=== PATIENT | female | born 1960 | race Caucasian/White ===

== ENCOUNTER 2017-10-04 00:59 | Inpatient (IN) | payer OTHER ==
[~2017-10-04] VITALS: Ht 157.5 cm; Wt 87.1 kg
[~2017-10-04 00:59] MED LIST: FUROSEMIDE20 M1 PO; METHADONE HCL10 M1 PO; NEXIUM40 M1 PO; OXYCODONE HCL10 M2 PO; OXYCONTIN80 M1 PO; WELLBUTRIN SR150 M1 PO; XANAX0.5 M1 PO
--- NOTE | 2017-10-04 10:50 | Admission Core Measures ---
Acute Coronary Syndrome (CM) ACS Core Measures Acute Coronary Syndrome Diagnosis No Congestive Heart Failure (NEW) CHF Core Measures Congestive Heart Failure Diagnosis No Cerebrovascular Accident (NEW) CVA Core Measures CVA/TIA Diagnosis No Venous Thromboembolism VTE Core Arik (View Protocol) VTE Risk Factors Surgery No Mechanical VTE Prophylaxis d/t N/A MechProphylax Ordered No VTE Pharm Prophylaxis d/t NA PharmProphylax ordered Problem List As ranked by this Provider includes Assessment & Plan 1. Mechanical loosening of internal right hip prosthetic joint HOME MEDS Home Med List Alprazolam (Xanax) 0.5 MG TABLET 1 TAB PO DAILY NEEDED ANXIETY (Reported) Bupropion HCl (Wellbutrin Sr) 150 MG TABLET.ER 1 TAB PO BID PAIN (Reported) Esomeprazole (Nexium) 40 MG CAPSULE.DR 1 CAP PO DAILY GERD (Reported) Furosemide 20 MG TABLET 1 TAB PO DAILY UNKNOWN (Reported) Methadone Hydrochloride (Methadone HCl) 10 MG TABLET 1 TAB PO TID PAIN ( Reported) Oxycodone HCl 10 MG TABLET 1 TAB PO Q4H PRN PAIN (Reported) Oxycodone HCl (Oxycontin) 80 MG TAB.ER.12H 1 TAB PO TID PAIN (Reported)
--- NOTE | 2017-10-04 10:54 | Surgical Discharge Summary ---
Visit Information Visit Dates Admission Date: 10/04/17 Discharge Date: 10/05/17 History of Present Illness Chief Complaint: RIGHT HIP PAIN Surgical History Pertinent Surgical History: hip replacement Review of Systems: PER [facility] Hospital Course Course Attending Physician: Ramo Dowd MD Primary Care Physician: Lawrence Spicer MD Hospital Course: Pt presented to [facility] on 10/04/17 for an elective right total hip revision. Pt tolerated the procedure well. Post-operatively she voided spontaneously, tolerated PO intake, pain was managed with oral medication, she ambulated with physical therapy and was cleared for discharge to home with home health services. Discharge instructions were reviewed with the patient. She was given instructions to follow-up with Dr. 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
--- NOTE | 2017-10-04 10:56 | Patient Discharge Instructions ---
Discharge Instructions General Discharge Information You were seen/treated for: right hip pain due to mechanical loosening of right hip implant You had these procedures: Revision of right tatal hip replacement Watch for these problems: fever of 101 drainage from incision redness around incision unable to bear weight No bath, but you may shower: Yes Other wound care: daily dry dressing change Special Instructions: no driving while taking narcotics Diet Continue normal diet: Yes Activity Activity Self Limited: Yes Activity Limited to: Weight bear as tolerated (with rolling walker) Acute Coronary Syndrome Inclusion Criteria At DC or during hospital stay patient has or had the following: ACS DIAGNOSIS No Discharge Core Measures Meds if any: Prescribed or Continued at Discharge Meds if any: NOT Prescribed or Continued at Discharge Congestive Heart Failure Inclusion Criteria At DC or during hospital stay patient has or had the following: CHF DIAGNOSIS No Discharge Core Measures Meds if any: Prescribed or Continued at Discharge Meds if any: NOT Prescribed or Continued at Discharge Cerebrovascular accident Inclusion Criteria At DC or during hospital stay patient has or had the following: CVA/TIA Diagnosis No Discharge Core Measures Meds if any: Prescribed or Continued at Discharge Meds if any: NOT Prescribed or Continued at Discharge Venous thromboembolism Inclusion Criteria VTE Diagnosis No VTE Type NONE VTE Confirmed by (Test) NONE Discharge Core Measures - Per Current guidelines, there needs to be overlap - treatment for the first 5 days of Warfarin therapy. - If discharged on Warfarin prior to 5 days of - overlap therapy, the patient will need to be - assessed for post discharge needs including - *Post discharge parental anticoagulation - *Warfarin and/or parental anticoagulation education - *Follow up date to check INR post discharge At least 5 days overlap therapy as Inpatient No Meds if any: Prescribed or Continued at Discharge Note: Overlap Therapy is Warfarin and Anticoagulant Meds if any: NOT Prescribed or Continued at Discharge
[2017-10-04] MEDS ORDERED: COLACE100 M1 PO (10:58)
[2017-10-04] MEDS ORDERED: MIRALAX17 G1 PO (10:58)
[2017-10-04] MEDS ORDERED: DILAUDID2 M1 PO (10:58)
[2017-10-04] MEDS ORDERED: ASPIRIN EC325 M2 PO (10:58)
--- NOTE | 2017-10-04 14:43 | Operative Report ---
Operative/Inv Procedure Report Surgery Date: 10/04/17 Name of Procedure: Failed right total hip replacement Pre-Operative Diagnosis: Right total hip revision Post-Operative Diagnosis: Same Estimated Blood Loss: 350 Surgeon/Lunchroom Worker: Nile ROBLEDO,Ramo Li Anesthesia: block Operative/Procedure Note Note: Description of Procedure: The patient was taken to the operating room and positively identified. After induction of spinal anesthesia and administration of appropriate pre-operative antibiotics, the patient was positioned supine on the operating room table and all bony prominences were well padded. After performing a surgical timeout, the right lower extremity was prepped and draped in the usual sterile fashion. A direct anterior approach was made to the right hip. The incision was carried sharply through superficial soft tissues to the level of the fascia. Meticulous hemostasis was maintained with Bovie electocautery. The fascia over the tensor fascia rigo muscle was opened sharply and the interval between the TFL and the sartorius was entered bluntly taking care to stay lateral to the lateral femoral cutaneous nerve. Retractors were placed around the femoral neck and the pericapsular fat was identified. The ascending branches of the lateral femoral circumflex vessels were identified and carefully coagulated. The anterior pseudocapsule was resected, exposing the neck of the previously placed prosthesis. A sample of the synovium were sent for microbiologic analysis. Exposure continued until the head could be dislocated from the socket. The femoral head was disimpacted from the trunnion. The modular neck was also disimpacted from the distal part of the stem. Retractors were placed around the acetabulum. It was noted that the acetabulum was quite vertical and that the anterior and superolateral portions of the acetabular rim were overhanging the actual metallic portion of the component due to its vertical position. The locking mechanism for the polyethylene could not be accessed due to the position of the cup. Utilizing an osteotome, the polyethylene liner was split into multiple pieces until it could easily be removed. Dome screw was removed with the appropriate screwdriver. Utilizing the Delaney cup removal system, the acetabular component was freed from its bony bed. He was done with a minimum of bony damage. The acetabular bed was found to be in good condition, free of any cavitary defects or fractures. Acetabular bed was then irrigated with a liter of sterile saline. It was then reamed to accept a 60 mm Biomet G7 OsseoTi multi-hole acetabular implant. This was impacted into place in the appropriate position and several screws were used for supplemental fixation. It was then fit with a 40 mm G7 neutral acetabular liner. The hip was then trialed with a Delaney Kinectiv size J modular neck in the lateral offset position and a 40mm +0 head. This yielded excellent range of motion stability and jainism of preoperative leg lengths. She was quite long on the operative side preoperatively. The trial components removed and the final components were impacted into place. The hip was reduced and put through a full range of motion found to be quite stable. The intra-articular space was copiously irrigated with sterile saline. The pericapsular soft tissues were infiltrated with Marcaine. The fascial layers were closed with #1 Vicryl sutures. The skin was reapproximated with interrupted 2-0 Vicryl and closed with gregor. A sterile dressing was applied, the patient was awakened and taken to recovery room in satisfactory condition.
--- NOTE | 2017-10-04 15:27 | RADIOLOGY REPORT ---
EXAMINATION: XR HIP, RIGHT CLINICAL INFORMATION: Postoperative. COMPARISON: None TECHNIQUE: Two views of the right hip. FINDINGS: Postoperative changes of total right hip arthroplasty. Cerclage wires are noted surrounding the prosthesis inferior to the trochanteric region. There is subcutaneous gas projecting in the region of the right hip with Skin gregor. Hardware is intact. IMPRESSION: Postoperative changes of total right hip arthroplasty.
[2017-10-04 16:10] VITALS: BP 120/64
[2017-10-04 16:27] VITALS: BP 120/64
--- NOTE | 2017-10-04 17:03 | PN- Orthopedic ---
Subjective Subjective: post op check: no complaints. pain controlled. no cp/.sob, no fever or flu like illness Objective Vital Signs and I&Os Vital Signs Date Time Temp Pulse Resp B/P B/P Pulse O2 O2 Flow FiO2 Mean Ox Delivery Rate 10/04 1627 97.5 64 20 120/64 96 Room Air Physical Exam: wdwn, aox3, nad heent-wnl no resp distress RLE- dressing cdi, scant thin bloody drainage inferior. mild thigh swelling no shortening or rotation nvi distally no calf pain. Assessment/Plan Assessment/Plan pod #1 sp R total hip arthroplasty acetabular revision perioperative abx pain meds as needed (chronic pain issues) asa for dvt ppx ivf regular diet WBAT OOB PT ALPS am labs dressing change pod2 potential dc home tomorrow w vna Core Measures Venous Thromboembolism VTE Risk Factors Surgery No Mechanical VTE Prophylaxis d/t N/A MechProphylax Ordered No VTE Pharm Prophylaxis d/t NA PharmProphylax ordered
[2017-10-04 18:33] VITALS: BP 128/70
[2017-10-04 21:00] VITALS: BP 122/74
[2017-10-04 23:07] VITALS: BP 132/70
[2017-10-05 01:09] VITALS: BP 114/64
[2017-10-05 04:47] VITALS: BP 120/60
--- NOTE | 2017-10-05 08:24 | PN- Orthopedic ---
Subjective Subjective: PT IN BED, MINIMAL PAIN CONTROLLED WITH MEDICATION. DENIES PARESTHESIAS BEYOND HER BASELINE. AMBULATING, VOIDING. DENIES CP/SOB, FEVERS, BRAND. TOLERATING PO Objective Vital Signs and I&Os Vital Signs Date Time Temp Pulse Resp B/P B/P Pulse O2 O2 Flow FiO2 Mean Ox Delivery Rate 10/05 0447 97.9 68 20 120/60 93 Room Air 10/05 0109 98.1 79 20 114/64 93 Room Air 10/04 2307 98.2 75 18 132/70 94 Room Air 10/04 2100 97.9 74 16 122/74 97 Room Air 10/04 1936 Room Air 10/04 1833 97.7 72 18 128/70 92 10/04 1627 97.5 64 20 120/64 96 Room Air 10/04 1610 97.5 64 20 120/64 97 Room Air Intake & Output 10/05 1600 10/05 0800 10/05 0000 10/04 1600 10/04 0800 10/04 0000 Intake Total 300 600 Output Total 1000 4000 Balance -700 -3400 Intake, IV 300 Intake, Oral 300 300 Output, Urine 1000 4000 Patient 192 lb Weight Weight Reported by Patient Measurement Method Physical Exam: GEN-NAD RESP- CLEAR CARDIAC-RRR ABD- SOFT, NT EXT- RIGHT HIP SOFT, DRESSING CLEAN AND DRY. DISTAL SENSORY AND MOTOR FUNCTION INTACT. 1+ DP PULSE. Current Medications: Current Medications Sig/Radha Start time Last Medication Dose Route Stop Time Status Admin Acetaminophen 1,000 MG Q6H 10/04 2300 AC 10/05 IV 10/05 1101 0506 Acetaminophen 1,000 MG Q6 10/04 1200 DC 10/04 IV 10/05 0601 1714 Acetaminophen 0 .STK-MED ONE 10/04 1026 DC PO Acetaminophen 0 .STK-MED ONE 10/04 1020 DC PO Acetaminophen 975 MG ONE 10/04 0000 DC PO 10/04 2359 Alprazolam 0.5 MG DAILY NEEDED PRN 10/04 1045 DC PO 10/11 1044 Aspirin Buffered 325 MG BID 10/04 2100 AC 10/04 PO 2016 Bupropion HCl 150 MG BID 10/04 2100 DC PO Bupropion HCl 150 MG BID 10/04 2100 AC 10/04 PO 2017 Cefazolin Sodium 2 GM IQ8 10/04 1600 DC 10/04 N/A 1 UNIT IV 10/05 0029 2325 Cefazolin Sodium 2,000 MG ONE 10/04 0000 DC IV 10/04 2359 Dexamethasone 4 MG .STK-MED ONE 10/04 1103 DC IM 10/04 1104 Dextrose/Sodium 1,000 ML .[id number] 10/04 1630 DC 10/04 Chloride IV 10/05 0549 1640 Docusate Sodium 100 MG BID 10/04 2100 AC 10/04 PO 2017 Fentanyl Citrate 100 MCG .STK-MED ONE 10/04 1102 DC IM 10/04 1103 Furosemide 20 MG DAILY 10/05 0900 DC PO Furosemide 20 MG DAILY 10/05 0900 AC PO Hydromorphone HCl 2 MG Q4P PRN 10/04 1630 AC PO Hydromorphone HCl 4 MG Q4P PRN 10/04 1630 AC 10/05 PO 0140 Methadone HCl 10 MG TID 10/04 2100 AC 10/04 PO 2016 Methadone HCl 10 MG TID 10/04 1400 DC PO Midazolam HCl 2 MG .STK-MED ONE 10/04 1103 DC IM 10/04 1104 Morphine Sulfate 2 MG Q2P PRN 10/04 1630 AC 10/04 IV 2001 Omeprazole 40 MG DAILY AC 10/05 0700 DC PO Omeprazole 40 MG DAILY AC 10/05 0700 AC 10/05 PO 0505 Ondansetron HCl 4 MG Q6P PRN 10/04 1630 AC IV Oxycodone HCl 80 MG Q8H 10/04 2200 AC 10/05 PO 0505 Oxycodone HCl 80 MG Q8H 10/04 1400 DC PO Oxycodone HCl 0 .STK-MED ONE 10/04 1020 DC PO Oxycodone HCl 10 MG ONE 10/04 0000 DC PO 10/04 2359 Polyethylene Glycol 17 GM DAILY 10/05 0900 AC PO Promethazine HCl 12.5 MG Q6P PRN 10/04 1630 AC IV 10/11 1044 Assessment/Plan Assessment/Plan pod #1 sp R total hip arthroplasty acetabular revision pain meds as needed (chronic pain issues) asa for dvt ppx regular diet PT- WBAT W ROLLING WALKER, awaiting clearence for dc to home OOB ALPS dressing change pod2 dc planning- home today w vna pending PT clearence Core Measures Venous Thromboembolism VTE Risk Factors Surgery No Mechanical VTE Prophylaxis d/t N/A MechProphylax Ordered No VTE Pharm Prophylaxis d/t NA PharmProphylax ordered
[2017-10-05 09:24] LABS: ABSOLUTE BASOPHIL COUNT 0 /CUMM (0.0-0.2); ABSOLUTE EOSINOPHIL COUNT 0 /CUMM (0.0-0.7); ABSOLUTE GRANULOCYTE CT 10.5 /CUMM (1.4-6.5); ABSOLUTE LYMPH COUNT 2.3 /CUMM (1.2-3.4); ABSOLUTE MONOCYTE COUNT 0.8 /CUMM (0.10-0.60); BASOPHIL % 0.3 % (0.0-2.0); EOSINOPHIL % 0.2 % (0-5); GRANULOCYTE % 76.8 % (42.2-75.2); HEMATOCRIT 32.5 % (37-47); MEAN CORPUSCULAR HGB 26.6 PG (27.0-31.0); MEAN CORPUSCULAR HGB CONC 32.9 G/DL (33.0-37.0); MEAN CORPUSCULAR VOLUME 80.7 FL (81.0-99.0); MEAN PLATELET VOLUME 8.2 FL (7.4-10.4); PLATELET COUNT 317 /CUMM (130-400); RBC DISTRIBUTION WIDTH 16.1 % (11.5-14.5); RED BLOOD CELL CT 4.03 /CUMM (4.20-5.40); WHITE BLOOD CELL COUNT 13.6 /CUMM (4.8-10.8)
[2017-10-05 09:53] VITALS: BP 118/60
[2017-10-05 13:50] VITALS: BP 130/70
[2017-10-05 13:52] VITALS: BP 130/70
== END 2017-10-05 13:53 | disposition home health service (06) | DRG 468 ==
LOC: SDA 00:59 → 2NA 00:59 → ENRESERV 14:32 → ENTRNSPT 15:41 → 2NA 16:03 → EDTRNSPT 16:03 → EDTRNSPTSTS 16:03 → CMPTRNSPT 16:12 → ENPENDDIS 10-05 08:28 → ENTRNSPT 10-05 13:32 → EDTRNSPTSTS 10-05 13:49 → 2NA 10-05 13:53 → CMPTRNSPT 10-05 14:07
PROVIDERS: Physician Assistant Surgical
PROC: 0SP909Z Removal of Liner from Right Hip Joint, Open Approach (ICD-10-PCS; principal; 2017-10-04)
PROC: 0SPA0JZ Removal of Synthetic Substitute from Right Hip Joint, Acetabular Surface, Open Approach (ICD-10-PCS; principal; 2017-10-04)
PROC: 0SRA01A Replacement of Right Hip Joint, Acetabular Surface with Metal Synthetic Substitute, Uncemented, Open Approach (ICD-10-PCS; principal; 2017-10-04)
PROC: 0SUA09Z Supplement Right Hip Joint, Acetabular Surface with Liner, Open Approach (ICD-10-PCS; principal; 2017-10-04)
DX: T84.030A Mechanical loosening of internal right hip prosthetic joint, initial encounter (principal); M32.9 Systemic lupus erythematosus, unspecified; E03.9 Hypothyroidism, unspecified; K21.9 Gastro-esophageal reflux disease without esophagitis; K57.90 Diverticulosis of intestine, part unspecified, without perforation or abscess without bleeding; M19.90 Unspecified osteoarthritis, unspecified site; G89.29 Other chronic pain; Z79.891 Long term (current) use of opiate analgesic; Z96.651 Presence of right artificial knee joint; Z96.642 Presence of left artificial hip joint; Z90.49 Acquired absence of other specified parts of digestive tract; Z88.1 Allergy status to other antibiotic agents; Z88.2 Allergy status to sulfonamides
CPT/HCPCS: 2NASP; 87070; 87075; 36415; 73502-RT; 82436; 87086; 97110-GO; 97116-GO; 97161-GP; 97530-GO; J0131; J0690; J0735; J1100; J2405; J2550; J3490; J7042